=== PATIENT | female | born 1985 | race Caucasian/White ===

== ENCOUNTER → 2016-06-11 | Outpatient (CLI) | payer BC ==
--- NOTE | 2016-06-11 12:32 | US ---
Transabdominal and Endovaginal Pelvic Sonography Clinical History: 30-year-old female with irregular menstrual cycles, possibly due to control p ills, and painful intercourse and postcoital bleeding. The patient's LMP was 05/16/2016, and she is . ICD 10 Diagnostic Code: N93.9 TECHNIQUE: A curvilinear 5 MHz transducer was initially used to sonographically evaluate the pelvis, using a full urinary bladder as a window. To better assess the uterine architecture and the adnexal s tructures, endovaginal pelvic sonography was also performed. Color and spectral Doppler were used. Comparison: None. Findings: Transabdominal Pelvic Sonography: The uterus is normal in size, shape, and position, measuring 8.6 x 3.5 x 4.7 cm. The right and left ovaries are normal. There is no free fluid. Endovaginal Pelvic Sonography: The endometrium is homogeneous, and measures 5.4 mm. There is no focal myometrial abnormality. The right ovary measures 1.7 x 2.7 x 1.9 and cm. The left ovary measures 2.9 x 1.5 x 2.7 cm. The right ovarian volume is 4.7 mL, and the left ovarian volume is 6.1 mL. There are no cystic or solid adnexal masses identified. Tiny peripheral anechoic ovarian follicles are noted. Normal arterial blood flow is documented to both ovaries by Doppler ultrasound. The resistive index a ssociated with the right ovary is 0.62, and with the left ovary is 0.45. There is no free fluid in th e pelvic cul-de-sac. Impression: Normal studies.
== END ==
LOC: FIMAGING 11:39
PROVIDERS: ATTEND Obstetrics & Gynecology
DX: N93.9 Abnormal uterine and vaginal bleeding, unspecified (principal)

== ENCOUNTER → 2018-07-18 | Outpatient (CLI) | payer BC | LOC: FIMAGING 10:14 | PROVIDERS: ATTEND Obstetrics & Gynecology | DX: Z34.02 Encounter for supervision of normal first pregnancy, second trimester (principal) ==